=== PATIENT | female | born 1965 | race African-American/Black ===

== ENCOUNTER 2020-01-24 23:34 | Inpatient (IN) | payer OTHER ==
[2020-01-24 23:41] VITALS: BMI 30.5
--- NOTE | 2020-01-24 23:41 | PDOC ---
Rapid Medical Evaluation Chief Complaint: Foreign Body (FB) Time Seen by Provider: 01/24/20 23:37 Medical Evaluation: 01/24/20 23:37 I have performed a brief in-person evaluation of this patient. CC: ?nosering retained in left nare; also with left sided abdominal inflammation s/p liposuction and ?"fluid removal with injections" PE: Unable to assess abdomen. No obvious FB in nose. Orders: nothing Patient will proceed to ED for further evaluation. Discharge Disposition - Diagnosis Foreign body in nose - Referrals - Patient Instructions - Post Discharge Activity
--- NOTE | 2020-01-24 23:53 | PDOC ---
History of Present Illness - General Chief Complaint: Foreign Body (FB) Stated Complaint: FOREIGN BODY Time Seen by Provider: 01/24/20 23:37 History Source: Patient Exam Limitations: No Limitations - History of Present Illness Initial Comments: 01/25/20 00:28 54F who denies PMH presenting with two complaints. Pt c/o small debbie earring in nose as foreign body. c/o nasal pain. Pt c/o 2 weeks of constant sharp left flank pain and bulge. She had liposuction 1 month ago and has underwent multiple procedures to remove fluid, last being 1 week ago. Denies f/c, n/v/d, cp/sob. Past History - Medical History Allergies/Adverse Reactions: Allergies Allergy/AdvReac Type Severity Reaction Status Date / Time No Known Allergies Allergy Verified 01/25/20 00:31 Home Medications: Ambulatory Orders NK [No Known Home Medication] 01/25/20 COPD: No HTN: Yes - Surgical History Abdominal Surgery: Yes (liposuction) - Psycho-Social/Smoking History Smoking History: Never smoked - Substance Abuse Hx (Audit-C & DAST Scrn) How often the patient has a drink containing alcohol: Never Score: In Men: 4 or > Positive; In Women: 3 or > Positive: 0 Screen Result (Pos requires Nsg. Audit-10AR): Negative Review of Systems - Review of Systems Comments:: 01/25/20 06:28 CONSTITUTIONAL: Denies F / C HEENT: Endorses foreign body in nose. Denies changes in vision / hearing, sore throat, rhinorrhea RESP: Denies SOB, cough CARD: Denies chest pain GI: +left flank bulge and pain. Denies N / V / D : Denies dysuria, hematuria, frequency NEURO: Denies numbness, tingling, weakness MSK: Denies back pain SKIN: Denies rashes *Physical Exam - Vital Signs Last Vital Signs Temp Pulse Resp BP Pulse Ox 98.3 F 101 H 18 142/104 H 100 01/24/20 23:39 01/24/20 23:39 01/24/20 23:39 01/24/20 23:39 01/24/20 23:39 - Physical Exam 01/25/20 06:28 GEN: anxious and moderately distressed. AAOx3. HEENT: NC/AT, EOMI, PERRL. Nares clear b/l, no foreign body visualized. Posterior pharynx clear, Moist mucous membranes.. No facial asymmetry. Normal voice. Supple neck w/ FROM. CV: S1/S2, RRR, no m/r/g LUNG: CTAB, no wheezes, crackles, rales, rhonchi. GI: +TTP of the left flank, indurated area. no erythema. o/w ndnt, +BS, no guarding, no rebound MSK: No obvious deformities of all extremities. SKIN: Warm, dry, no rashes appreciated. PSYCH: bizzare NEURO: Moving all extremities well. normal gait. ED Treatment Course - LABORATORY CBC & Chemistry Diagram: 01/25/20 01:00 01/25/20 01:00 Medical Decision Making - Medical Decision Making 01/25/20 06:28 54F c/o foreign body and left flank pain s/p liposuction and multiple fluid removal procedures. facial bone XR bedside US CXR KUB tylenol labs, urine 01/25/20 02:23 no foreign body seen on facial, chest, and KUB xrays ESR wnl CRP neg f/u US report 01/25/20 03:10 Patient Name: AJYA SHELLEY THIS IS A PRELIMINARY REPORT FROM [facility] DATE OF SERVICE: 2020-01-25 01:40:40 IMAGES: 27 EXAM: SOFT TISSUE ABDOMEN US HISTORY: Left flank swelling status post abdominoplasty COMPARISON: None. FINDINGS: There is a 12 x 12 x 4 mm subcutaneous fluid collection, possibly seroma, hematoma or abscess. No other fluid collections identified. Mild soft tissue hypervascularity and edema could represent cellulitis. IMPRESSION: Probable cellulitis with 12 mm diameter hematoma, seroma or abscess THIS DOCUMENT HAS BEEN ELECTRONICALLY SIGNED Tristan Scott MD 01/25/2020 03:06 EST admit leonor muñoz Discharge - Discharge Information Problems reviewed: Yes Clinical Impression/Diagnosis: Foreign body in nose, Post surgical complication, Abdominal wall cellulitis Condition: Stable - Admission Yes - Follow up/Referral - Patient Discharge Instructions - Post Discharge Activity
[2020-01-25] MEDS ORDERED: ACETAMINOPHEN 500 MG TABLET (FP) PO ONE ×2 (00:41→00:44)
[2020-01-25] MEDS ORDERED: ATORVASTATIN CA 10 MG TABLET (FP) ONE (00:46)
[2020-01-25] MEDS ORDERED: ACETAMINOPHEN 325 MG TABLET (FP) ONE (00:48)
[2020-01-25 01:21] LABS: EPI CELLS 6 /uL (0-25.1); HYALINE CASTS 1 /uL (0-3.1); PH,URINE 6.5 (5.0-8.0); URINE APPEARANCE CLEAR; URINE BACTERIA 221 /uL (0-1359); URINE BILIRUBIN NEGATIVE (NEGATIVE); URINE COLOR YELLOW; URINE GLUCOSE (UA) NEGATIVE (NEGATIVE); URINE KETONE TRACE (NEGATIVE); URINE LEUK ESTERASE NEGATIVE (NEGATIVE); URINE NITRITE NEGATIVE (NEGATIVE); URINE PROTEIN NEGATIVE (NEGATIVE); URINE RBC 55 /uL (0-23.9); URINE WBC 4 /uL (0-25.8)
[2020-01-25 01:24] LABS: BASO % 1.2 % (0-2.0); EOS % 1.9 % (0-4.5); HEMATOCRIT 37.1 % (32.4-45.2); HEMOGLOBIN 12.3 GM/dL (10.7-15.3); LYMPH % 53.4 % (8-40); MCH 32.5 pg (25.7-33.7); MCHC 33.1 g/dl (32.0-36.0); MEAN PLT VOLUME 8.2 fl (7.5-11.1); MONO % 9.7 % (3.8-10.2); NEUT % 33.8 % (42.8-82.8); PLATELET COUNT 253 K/MM3 (134-434); RBC 3.79 M/mm3 (3.60-5.2); RDW 14.2 % (11.6-15.6); WHITE BLOOD COUNT 7.5 K/mm3 (4.0-10.0)
--- NOTE | 2020-01-25 01:28 | PDOC ---
Documentation entered by Alem Rodriguez SCRIBE, acting as scribe for Rica Choi MD. Rica Choi MD: This documentation has been prepared by the ariibeJennifer Sydney, SCRIBE, under my direction and personally reviewed by me in its entirety. I confirm that the documentation accurately reflects all work, treatment, procedures, and medical decision making performed by me. Attending Attestation - Resident Resident Name: Pradip Escalera - ED Attending Attestation I have performed the following: I have examined & evaluated the patient, The case was reviewed & discussed with the resident, I agree w/resident's findings & plan, Exceptions are as noted - HPI HPI: 01/25/20 01:07 Patient is a 54 year old female with no significant past medical history who presents to the ED with a foreign body in her left nostril and two weeks left- sided abdominal pain. As per patient, she thinks she snorted her nose ring up her nose and reports associated nostril pain. Patient also endorses left abdominal induration possibly secondary to procedures for fluid drainage related to her recent liposuction surgery one month ago. Denies fever, chills, headache, chest pain, or urinary changes. Allergies: NKDA 01/25/20 21:11 Pt had her liposuction procedure in [place] - Physicial Exam PE: 01/25/20 04:24 Pt has normal heart and lungs Skin several tattoos Abd tummy tuck/liposuction done in [place] Pt has LLQ pain and redness and minimal swelling heart and lungs normal flank normal No open wounds and no pus draininge neruo exam normal HEENT normal - Medical Decision Making 01/25/20 01:28 XR facial bones and chest abd pelvis do not revel her debbie stud nose ring 01/25/20 01:30 Pt's WBC is normal 01/25/20 01:55 Labs are normal Pt will have a sonogram to look for soft tissue abscess in the abd wall 01/25/20 01:55 Sed rate and CRP pending 01/25/20 02:23 Sed rate normal 01/25/20 03:12 Patient Name: AJAY SHELLEY THIS IS A PRELIMINARY REPORT FROM IMAG[facility] INTERNIST MEDICAL DOCTOR MD DATE OF SERVICE: 2020-01-25 01:40:40 IMAGES: 27 EXAM: SOFT TISSUE ABDOMEN US HISTORY: Left flank swelling status post abdominoplasty COMPARISON: None. FINDINGS: There is a 12 x 12 x 4 mm subcutaneous fluid collection, possibly seroma, hematoma or abscess. No other fluid collections identified. Mild soft tissue hypervascularity and edema could represent cellulitis. IMPRESSION: Probable cellulitis with 12 mm diameter hematoma, seroma or abscess 01/25/20 21:10 Pt admitted to the hospitalists Heart Score/ECG Review - ECG Intrepretation Rhythm: Regular Rhythm - [place]: Normal - P and NE Prominent R with upright T in V1 (true posterior IL): No Delta Wave(s) Present: No WPW: No - QRS Poor R Wave Progression: No Q Wave Present: No - ST and T Early Repolarization: No Non Specific ST-T Wave changes: No Flattened T Waves: No Prolonged Q-T Interval: No - ECG Impressions Normal ECG: Yes Non-specific ST Elevation: No Ischemic Changes: No Bradycardia: No Torsades taye Pointes: No WPW: No Discharge - Discharge Information Problems reviewed: Yes Clinical Impression/Diagnosis: Foreign body in nose, Post surgical complication, Abdominal wall cellulitis Condition: Stable Disposition: ELOPED - Follow up/Referral - Patient Discharge Instructions - Post Discharge Activity
[2020-01-25 01:47] LABS: ALBUMIN 3.8 g/dl (3.4-5.0); ALK PHOS 75 U/L (45-117); ANION GAP 8 MMOL/L (8-16); BILIRUBIN,TOTAL 0.3 mg/dL (0.2-1); BLOOD UREA NITROGEN 15.7 mg/dL (7-18); CALCIUM 9.4 mg/dL (8.5-10.1); CHLORIDE 104 mmol/L (98-107); CO2 28 mmol/L (21-32); CREATININE 1.4 mg/dL (0.55-1.3); GLUCOSE,RANDOM 102 mg/dL (74-106); POTASSIUM 3.7 mmol/L (3.5-5.1); SGOT/AST 22 U/L (15-37); SGPT/ALT 31 U/L (13-61); SODIUM 139 mmol/L (136-145); TOT PROT 7.5 g/dl (6.4-8.2)
[2020-01-25 02:16] LABS: ERYTHROCYTE SEDIMENTATION RATE 5 mm/hr (0-30)
[2020-01-25] MEDS ORDERED: ceFAZolin 2 GRAM PREMIX BAG IVPB ONE (03:11)
[2020-01-25] MEDS ORDERED: CEFAZOLIN 2 GM/D5W 2 GM/50 ML ML IVPB ONE ×3 (03:30→03:49)
--- NOTE | 2020-01-25 04:13 | PN ---
Teaching Attending Note Name of Resident: Augustus Rudolph ATTENDING PHYSICIAN STATEMENT I saw and evaluated the patient. I reviewed the resident's note and discussed the case with the resident. I agree with the resident's findings and plan as documented. SUBJECTIVE: Patient is a 54 year old woman with a PMH of Obesity, HTN and Unspecified psychiatric illness who presents to the ER with the complaint of a foreign body in her left nostril and two weeks left-sided abdominal pain and bulge. As per patient, she thinks she snorted her debbie nose ring up her nose and reports associated nostril pain. Patient also has left abdominal induration possibly secondary to procedures for fluid drainage related to her recent liposuction surgery one month ago in [place]. She had liposuction one month ago and has undergone multiple procedures to remove fluid, last being 1 week ago. LMP was two months ago. Works as a [employer] inspector. Denies fever, chills, nausea, vomiting, chest pain, SOB, dysuria, headache or diarrhea. Denies alcohol, tobacco or illicit drug use. No sick contacts or recent travels. Family history is unremarkable. OBJECTIVE: Alert Vital Signs Period Temp Pulse Resp BP Sys/[place] Pulse Ox Last 24 Hr 98.3 F 101 18 129-142/96-104 100 HEENT: No Jaundice, eye redness or discharge, PERRLA, EOMI. Normocephalic, atraumatic. External ears are normal and hearing is grossly intact. No foreign body noted in nares and no nasal discharge. Neck: Supple, nontender. No palpable adenopathy or thyromegaly. No JVD Chest: Good effort. Clear to auscultation and percussion. Heart: Regular. No S3, rub or murmur Abdomen: Not distended, soft, area of induration in the left flank, tender to palpation; no HSM. No rebound or guarding. Normal bowel sounds. Ext: Peripheral pulses intact. No leg edema. Skin: Warm and dry. No petechiae, rash or ecchymosis. Neuro: Alert. Oriented x3. CN 2-12 grossly intact. Sensation grossly intact in all four extremities and DTR are symmetric. Psych: Appropriate mood and affect. Good insight. Home Medications Medication Instructions Recorded NK [No Known Home Medication] 01/25/20 Abnormal Lab Results 01/25/20 01/25/20 01/25/20 01:00 01:00 01:04 MCV 98.0 H Neutrophils % 33.8 L Lymphocytes % 53.4 H Creatinine 1.4 H Urine Ketones Trace H Urine Blood 1+ H ASSESSMENT AND PLAN: 1. Abdominal wall cellulitis and abscess - Report of soft tissue ultrasound of abdominal wall - "There is a 12 x 12 x 4 mm subcutaneous fluid collection, possibly seroma, hematoma or abscess. No other fluid collections identified. Mild soft tissue hypervascularity and edema could represent cellulitis. IMPRESSION: Probable cellulitis with 12 mm diameter hematoma, seroma or abscess." No acute abnormality or foreign body noted on CXR, facial bone xray or KUB. Viral testing for COVID-19 ordered and patient placed on airborne, droplet and contact isolation. EKG is pending. Will get CT abdomen/pelvis, PT/INR, keep her NPO, treat patient with IV Clindamycin, IV NS and consult ID and Surgery. 2. Obesity Counseled on the risks associated with obesity. Will provide patient all the necessary assistance, counseling and positive reinforcement to facilitate weight loss. Consult industrial maintenance technician. 3. DVT prophylaxis - SCD. 4. Advance directives - Full code
--- NOTE | 2020-01-25 06:10 | HP ---
CHIEF COMPLAINT: Left sided abdominal pain and foreign object in Left nare PCP: HISTORY OF PRESENT ILLNESS: Pt had liposuction by Dr. Garcia in [facility] on 12/12/19. She returned to [facility] on 12/18/19. She endorsed that her swelling/pain on her L side abdomen did not resolve after her procedure, so she went [facility], where the providers massaged the area to help manage the swelling, and also aspirated the fluid from her abdomen. She described it as a "cupful" of fluid that was aspirated during her weekly sessions. The fluid was clear and non-bloody. The past few days, the patient reported that the pain had worsened, describing as a "hot pinching sensation, or like boiling fire." She endorsed new onset-numbness on her L sided abdomen, but denies tingling, fever, lymph node swelling. She endorsed chills in December 2019. Pt also came to ED for evaluation of foreign object in her nare. Yesterday, pt was adjusting her hair, and it got caught on a nose ring on her L nare. When she tried to release the hair, the nose piercing had disappeared, and the pt believes that it had traveled up her nose. ER course was notable for: (1) Cr 1.4; UA: blood 1+, 55 RBCs (2) Ultrasound of abdomen showed [id number] mm subcutaneous fluid collection, possibly seroma, hematoma, or abscess. (3) nose piercing not seen on XR facial bone Recent Travel: [place] in December 2019 for liposuction procedure PAST MEDICAL HISTORY: HTN PAST SURGICAL HISTORY: -1 -appendectomy -abdominoplasty in 1998 -breast augmentation Social History: Smoking: denies Alcohol: socially Drugs: denies lives with her boyfriend LMP: 2 months ago occupation: [employer] Family History Mother DM Father HTN Allergies No Known Allergies Allergy (Verified 01/25/20 00:31) HOME MEDICATIONS: Home Medications Medication Instructions Recorded NK [No Known Home Medication] 01/25/20 REVIEW OF SYSTEMS CONSTITUTIONAL: Absent: fever, chills, diaphoresis, generalized weakness, malaise, loss of appetite, weight change HEENT: Absent: rhinorrhea, nasal congestion, throat pain, throat swelling, difficulty swallowing, mouth swelling, ear pain, eye pain, visual changes CARDIOVASCULAR: Absent: chest pain, syncope, palpitations, irregular heart rate, lightheadedness, peripheral edema RESPIRATORY: Absent: cough, shortness of breath, dyspnea with exertion, orthopnea, wheezing, stridor, hemoptysis GASTROINTESTINAL: abdominal pain, abdominal distension Absent: nausea, vomiting, diarrhea, constipation, melena, hematochezia GENITOURINARY: Absent: dysuria, frequency, urgency, hesitancy, hematuria, flank pain, genital pain MUSCULOSKELETAL: Absent: myalgia, arthralgia, joint swelling, back pain, neck pain SKIN: Absent: rash, itching, pallor HEMATOLOGIC/IMMUNOLOGIC: Absent: easy bleeding, easy bruising, lymphadenopathy, frequent infections ENDOCRINE: Absent: unexplained weight gain, unexplained weight loss, heat intolerance, cold intolerance NEUROLOGIC: Absent: headache, focal weakness or paresthesias, dizziness, unsteady gait, seizure, mental status changes, bladder or bowel incontinence PSYCHIATRIC: Absent: anxiety, depression, suicidal or homicidal ideation, hallucinations. PHYSICAL EXAMINATION Vital Signs - 24 hr 01/24/20 01/25/20 01/25/20 23:39 00:30 05:59 Temperature 98.3 F Pulse Rate 101 H Pulse Rate [ 92 H Right Radial] Respiratory 18 Rate Blood Pressure 142/104 H Blood Pressure 129/96 [Right Arm] O2 Sat by Pulse 100 100 Oximetry (%) GENERAL: Awake, alert, and fully oriented, in no acute distress. HEAD: Normal with no signs of trauma. EYES: Pupils equal, round and reactive to light, extraocular movements intact, sclera anicteric, conjunctiva clear. No lid lag. EARS, NOSE, THROAT: Ears normal, nares patent, oropharynx clear without exudates. Moist mucous membranes. NECK: Normal range of motion, supple without lymphadenopathy, JVD, or masses. LUNGS: Breath sounds equal, clear to auscultation bilaterally. No wheezes, and no crackles. No accessory muscle use. HEART: Regular rate and rhythm, normal S1 and S2 without murmur, rub or gallop. ABDOMEN: normoactive bowel sounds, LUQ/ L flank TTP, fluctuant, no guarding, no rebound, no increased warmth, no drainage, no masses. MUSCULOSKELETAL: Normal range of motion at all joints. No bony deformities or tenderness. No CVA tenderness. UPPER EXTREMITIES: 2+ pulses, warm, well-perfused. No cyanosis. No clubbing. No peripheral edema. LOWER EXTREMITIES: 2+ pulses, warm, well-perfused. No calf tenderness. No peripheral edema. NEUROLOGICAL: Cranial nerves II-XII intact. Normal speech. Normal gait. PSYCHIATRIC: Cooperative. Good eye contact. Appropriate mood and affect. SKIN: Warm, dry, normal turgor, no rashes or lesions noted, normal capillary refill. Laboratory Results - last 24 hr 01/25/20 01/25/20 01/25/20 01:00 01:00 01:04 WBC 7.5 RBC 3.79 Hgb 12.3 Hct 37.1 MCV 98.0 H MCH 32.5 MCHC 33.1 RDW 14.2 Plt Count 253 MPV 8.2 Absolute Neuts (auto) 2.5 Neutrophils % 33.8 L Lymphocytes % 53.4 H Monocytes % 9.7 Eosinophils % 1.9 Basophils % 1.2 Nucleated RBC % 0 ESR 5 Sodium 139 Potassium 3.7 Chloride 104 Carbon Dioxide 28 Anion Gap 8 BUN 15.7 Creatinine 1.4 H Est GFR (CKD-EPI)AfAm 49.94 Est GFR (CKD-EPI)NonAf 43.09 Random Glucose 102 Calcium 9.4 Total Bilirubin 0.3 AST 22 ALT 31 Alkaline Phosphatase 75 C-Reactive Protein < 0.3 Total Protein 7.5 Albumin 3.8 Urine Color Yellow Urine Appearance Clear Urine pH 6.5 Ur Specific [place] 1.023 Urine Protein Negative Urine Glucose (UA) Negative Urine Ketones Trace H Urine Blood 1+ H Urine Nitrite Negative Urine Bilirubin Negative Urine Urobilinogen 1.0 Ur Leukocyte Esterase Negative Urine WBC (Auto) 4 Urine RBC (Auto) 55 Urine Casts (Auto) 1 U Epithel Cells (Auto) 6 Urine Bacteria (Auto) 221 ASSESSMENT/PLAN: 54 YO F PMH HTN p/w L sided abdominal pain and swelling [s/p liposuction (12/2019) & weekly fluid aspiration appointments] and also self-reported foreign body in Left nare. #Abdominal Pain/Swelling 2/2 Abscess VS Seroma - Ultrasound of abdomen showed [id number] mm subcutaneous fluid collection, possibly seroma, hematoma, or abscess. -Surgery (Dr. Koenig) consulted -ID (Dr. Stoll) consulted -CT abdomen pelvis ordered -IV clindamycin 600 mg in 50 mL IVPB Q8H #Foreign body in nare - nose piercing not seen on XR facial bone -head CT in ED did not show her missing nose piercing in her nares -will continue monitoring pt #H/O HTN -currently vitals are stable. will continue to monitor #DVT ppx -Cr 1.4 -Heparin 5,000 SQ TID #FEN no IV fluids c/w monitor lytes Na+ controlled diet #DISPO maintain med surg Visit type - Emergency Visit Emergency Visit: Yes ED Registration Date: 01/25/20 Care time: The patient presented to the Emergency Department on the above date and was hospitalized for further evaluation of their emergent condition. - New Patient This patient is new to me today: Yes Date on this admission: 01/25/20 - Critical Care Critical Care patient: No ATTENDING PHYSICIAN STATEMENT I saw and evaluated the patient. I reviewed the resident's note and discussed the case with the resident. I agree with the resident's findings and plan as documented. SUBJECTIVE: OBJECTIVE: ASSESSMENT AND PLAN:
[2020-01-25 06:22] VITALS: BP 125/81; PULSE 90; TEMP 98.2
[2020-01-25] MEDS ORDERED: ACETAMINOPHEN 1000 MG/100 ML VIAL (NON FORMULARY) IVPB ONE (07:45)
[2020-01-25] MEDS ORDERED: ACETAMINOPHEN WITH CODEINE 300MG/30MG TABLET PO PRN (07:49)
[2020-01-25] MEDS ORDERED: ACETAMINOPHEN WITH CODEINE 300MG/30MG TABLET ONE (07:54)
[2020-01-25 08:56] LABS: HCG,QUALITATIVE URINE Negative
[2020-01-25] MEDS ORDERED: CLINDAMYCIN 600MG PREMIX IVPB 600 MG/50 ML BAG IVPB SCH (10:00)
[2020-01-25] MEDS ORDERED: HEPARIN NA (PORCINE) 5,000 UNITS/ML 1ML VIAL SQ SCH (14:00)
--- NOTE | 2020-01-25 14:58 | EKG ---
Test Reason : Blood Pressure : / mmHG Vent. Rate : 087 BPM Atrial Rate : 087 BPM P-R Int : 148 ms QRS Dur : 088 ms QT Int : 396 ms P-R-T Axes : 058 043 060 degrees QTc Int : 476 ms NORMAL SINUS RHYTHM NORMAL ECG NO PREVIOUS ECGS AVAILABLE Confirmed by NEELA MORIN MD ([id number]) on 01/25/2020 2:57:45 PM Referred By: Confirmed By:NEELA MORIN MD
--- NOTE | 2020-01-25 20:59 | CON.ID ---
Consult - History Source History Provided By: Patient - Smoking History Smoking history: Never smoked Home Medications - Allergies Allergies/Adverse Reactions: Allergies Allergy/AdvReac Type Severity Reaction Status Date / Time No Known Allergies Allergy Verified 01/25/20 00:31 - Home Medications Home Medications: Ambulatory Orders NK [No Known Home Medication] 01/25/20 Physical Exam Vital Signs: Vital Signs Temperature 98.2 F 01/25/20 06:22 Pulse Rate 90 01/25/20 06:22 Respiratory Rate 16 01/25/20 06:22 Blood Pressure 125/81 01/25/20 06:22 O2 Sat by Pulse Oximetry (%) 98 01/25/20 07:29 Labs: CBC, BMP 01/25/20 01:00 01/25/20 01:00 Laboratory Tests 01/25/20 01/25/20 01/25/20 01:00 01:00 01:04 WBC 7.5 RBC 3.79 Hgb 12.3 Hct 37.1 MCV 98.0 H MCH 32.5 MCHC 33.1 RDW 14.2 Plt Count 253 MPV 8.2 Absolute Neuts (auto) 2.5 Neutrophils % 33.8 L Lymphocytes % 53.4 H Monocytes % 9.7 Eosinophils % 1.9 Basophils % 1.2 Nucleated RBC % 0 ESR 5 Sodium 139 Potassium 3.7 Chloride 104 Carbon Dioxide 28 Anion Gap 8 BUN 15.7 Creatinine 1.4 H Est GFR (CKD-EPI)AfAm 49.94 Est GFR (CKD-EPI)NonAf 43.09 Random Glucose 102 Calcium 9.4 Total Bilirubin 0.3 AST 22 ALT 31 Alkaline Phosphatase 75 C-Reactive Protein < 0.3 Total Protein 7.5 Albumin 3.8 Urine Color Yellow Urine Appearance Clear Urine pH 6.5 Ur Specific [place] 1.023 Urine Protein Negative Urine Glucose (UA) Negative Urine Ketones Trace H Urine Blood 1+ H Urine Nitrite Negative Urine Bilirubin Negative Urine Urobilinogen 1.0 Ur Leukocyte Esterase Negative Urine WBC (Auto) 4 Urine RBC (Auto) 55 Urine Casts (Auto) 1 U Epithel Cells (Auto) 6 Urine Bacteria (Auto) 221 Urine HCG, Qual Negative Imaging - Results X-ray: Report Reviewed Cat Scan: Report Reviewed Ultrasound: Report Reviewed Problem List - Problems (1) Abdominal wall cellulitis Code(s): L03.311 - CELLULITIS OF ABDOMINAL WALL (2) Post surgical complication Code(s): T81.9XXA - UNSPECIFIED COMPLICATION OF PROCEDURE, INITIAL ENCOUNTER
== END 2020-01-25 08:30 | disposition left against medical advice (07) | DRG 721 ==
LOC: JER 23:34 → JERBED 01-25 03:12
PROVIDERS: ADMIT Internal Medicine; ATTEND Nurse Practitioner
DX: T81.41XA Infection following a procedure, superficial incisional surgical site, initial encounter (principal); L02.211 Cutaneous abscess of abdominal wall; L03.311 Cellulitis of abdominal wall; I10 Essential (primary) hypertension; T17.1XXA Foreign body in nostril, initial encounter; E66.9 Obesity, unspecified; Z68.30 Body mass index [BMI] 30.0-30.9, adult; K91.872 Postprocedural seroma of a digestive system organ or structure following a digestive system procedure
CPT/HCPCS: 36415; 70150-TC-FY; 71046-TC-FY; 74018-TC-FY; 76705-TC; 80053; 81003; 84703; 85025; 85651; 86140; 93005; 93010; 99285-25; U0003